=== PATIENT | male | born 1950 | race Caucasian/White ===

== ENCOUNTER 2016-08-10 10:05 | Inpatient (IN) | payer MEDICARE, BC ==
--- NOTE | 2016-08-10 10:11 | ER Document Report ---
ED Medical Screen (RME) - General Stated Complaint: DIARRHEA,WEAKNESS Mode of Arrival: Wheelchair Information source: Patient, Relative - Notes: Patient presents to emergency department with reports of vomiting diarrhea since Friday. He reports he woke up at approximately 2:00 in the morning and fell hitting his left side of his face. Patient has a black eye tender to palpation. reports that on Friday night patient seemed confused. She also reports he has some chest pain when since . She also reports shortness of breath. I have greeted and performed a rapid initial assessment of this patient. A comprehensive ED assessment and evaluation of the patient, analysis of test results and completion of the medical decision making process will be conducted by additional ED providers. TRAVEL OUTSIDE OF THE [place] IN LAST 30 DAYS: No - Related Data Allergies/Adverse Reactions: No Known Allergies Allergy (Verified 08/10/16 10:12) Past Medical History - Past Medical History Cardiac Medical History: Reports: Hx Hypercholesterolemia, Hx Hypertension Physical Exam - Vital signs Vitals: Temp Pulse Resp BP Pulse Ox 97.6 F 85 16 98/63 L 97 08/10/16 10:11 08/10/16 10:11 08/10/16 10:11 08/10/16 10:11 08/10/16 10:11 Course - Vital Signs Vital signs: Temp Pulse Resp BP Pulse Ox 97.6 F 85 16 98/63 L 97 08/10/16 10:11 08/10/16 10:11 08/10/16 10:11 08/10/16 10:11 08/10/16 10:11
[2016-08-10] MEDS ORDERED: NORMAL SALINE 1000 ML 1,000 ML IV ONE ×2 (10:13→12:04)
[2016-08-10 10:51] LABS: ADD ON TESTING BLD IN LAB ACKNOWLEDGE
[2016-08-10 11:08] LABS: HEMATOCRIT 33.8 % (37.9-51.0); HGB HCT DIFFERENCE 2.2; MEAN CORPUSCULAR HEMOGLOBIN 31.3 pg (27.0-33.4); MEAN CORPUSCULAR HGB CONC 35.4 g/dL (32.0-36.0); MEAN CORPUSCULAR VOLUME 88 fl (80-97); RED BLOOD COUNT 3.83 10^6/uL (4.35-5.55); RED CELL DISTRIBUTION WIDTH 13.7 % (11.5-14.0)
[2016-08-10 11:18] LABS: ALANINE AMINOTRANSFERASE 43 U/L (21-72); ALBUMIN 4.6 g/dL (3.5-5.0); ALKALINE PHOSPHATASE 47 U/L (38-126); ANION GAP 19 (5-19); ASPARTATE AMINO TRANSFERASE 71 U/L (17-59); BILIRUBIN,DIRECT 0.3 mg/dL (0.0-0.4); BILIRUBIN,TOTAL 0.6 mg/dL (0.2-1.3); BLOOD UREA NITROGEN 43 mg/dL (7-20); CALCIUM 9.7 mg/dL (8.4-10.2); CARBON DIOXIDE 23 mmol/L (22-30); CHLORIDE 97 mmol/L (98-107); CREATINE KINASE 718 U/L (55-170); CREATININE RESULT 2.89 mg/dL (0.52-1.25); GLUCOSE 155 mg/dL (75-110); LIPASE 1833.7 U/L (23-300); SODIUM 139.2 mmol/L (137-145); TOTAL PROTEIN 7.8 g/dL (6.3-8.2)
[2016-08-10 11:21] LABS: POTASSIUM 2.8 mmol/L (3.6-5.0)
[2016-08-10 11:27] LABS: BASOPHILS % (MANUAL) 0 % (0-2); EOSINOPHILS % (MANUAL) 1 % (0-6); LYMPHOCYTES % (MANUAL) 12 % (13-45); TOTAL CELLS COUNTED 100
[2016-08-10 11:28] LABS: BAND NEUTROPHILS % (MANUAL) 11 % (3-5); RBC MORPHOLOGY COMMENT NORMO-CYTIC/CHROMIC
[2016-08-10 11:30] LABS: CREATINE KINASE MB 6.03 ng/mL (<4.55)
[2016-08-10 11:32] LABS: TROPONIN I 0.127 ng/mL
[2016-08-10 11:37] LABS: ADD ON TESTING BLD IN LAB ACKNOWLEDGE
--- NOTE | 2016-08-10 11:45 | ER Document Report ---
ED General - General Chief Complaint: Dizziness Stated Complaint: DIARRHEA,WEAKNESS Mode of Arrival: Wheelchair Information source: Patient, Relative Notes: Patient reports a 5 day history of nausea, vomiting and diarrhea. Patient states she's vomited numerous times and had diarrhea a numerous number times as well. Patient states that he feels dizzy whenever he stands up. Patient reports having a low-grade fever at home. Patient additionally reports cough for the past 5 days. Patient complains of generalized abdominal pain that he attributes to the vomiting. Patient has had a decrease in appetite. states that 3 days ago patient got up to go to the bathroom during the night and was bumping into barnett and then fell. Patient reports that he is uncertain exactly what he hit when he fell in the hallway but had bruising to the left facial area. states at that time he seemed somewhat confused, although the confusion resolved. Since then patient has been acting normally. Patient denies any chest pain or shortness of breath at this time. Patient denies any blood in his emesis or stool. TRAVEL OUTSIDE OF THE [place] IN LAST 30 DAYS: No - HPI Onset: Other - 5 days Onset/Duration: Persistent Quality of pain: Achy Pain Level: 1 Associated symptoms: Nonproductive cough, Diarrhea, Fever - Low-grade, Nausea, Vomiting, Weakness. denies: Body/muscle aches, Chest pain, Productive cough, Shortness of breath Exacerbated by: Standing, Walking Relieved by: Denies Similar symptoms previously: No Recently seen / treated by doctor: No - Related Data Allergies/Adverse Reactions: No Known Allergies Allergy (Verified 08/10/16 10:12) Home Medications: Current Home Medications Escitalopram Oxalate 20 mg PO DAILY 08/10/16 [History] Fenofibrate Nanocrystallized [Fenofibrate] 48 mg PO DAILY 08/10/16 [History] Gabapentin 600 mg PO TID 08/10/16 [History] Imatinib Mesylate 400 mg PO DAILY 08/10/16 [History] Levothyroxine Sodium [Synthroid 0.1 mg Tablet] 0.1 mg PO DAILY 08/10/16 [History ] Metoprolol Succinate 25 mg PO BID 08/10/16 [History] Rosuvastatin Calcium [Crestor 10 mg Tablet] 10 mg PO DAILY 08/10/16 [History] Past Medical History - General Information source: Patient, Relative - - Social History Smoking Status: Never Smoker Chew tobacco use (# tins/day): No Frequency of alcohol use: None Drug Abuse: None Lives with: Spouse/Significant other Family History: None - Past Medical History Cardiac Medical History: Reports: Hx Hypercholesterolemia, Hx Hypertension Endocrine Medical History: Reports: Hx Hypothyroidism Renal/ Medical History: Denies: Hx Peritoneal Dialysis Malignancy Medical History: 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 denies: Chest pain, Palpitations Respiratory: Cough. denies: Short of breath, Wheezing Gastrointestinal: Abdominal pain, Diarrhea, Nausea, Vomiting, Poor appetite, Poor fluid intake. denies: Abdomen distended, Blood streaked bowels Genitourinary: No symptoms reported. denies: Dysuria, Flank pain Male Genitourinary: No symptoms reported Musculoskeletal: No symptoms reported. denies: Back pain Skin: No symptoms reported Hematologic/Lymphatic: No symptoms reported Neurological/Psychological: Weakness. denies: Confusion Physical Exam - Vital signs Vitals: Temp Pulse Resp BP Pulse Ox 97.6 F 85 16 98/63 L 97 08/10/16 10:11 08/10/16 10:11 08/10/16 10:11 08/10/16 10:11 08/10/16 10:11 - General General appearance: Appears well, Alert In distress: None - HEENT Head: Abrasions - Scabbed abrasions to left periorbital area, Ecchymosis - Left periorbital ecchymosis Eyes: Periorbital ecchymosis Conjunctiva: Normal Extraocular movements intact: Yes Eyelashes: Normal Pupils: PERRL Ears: Normal External canal: Normal Tympanic membrane: Normal. No: Hemotympanum Nasal: Normal Mouth/Lips: Normal Mucous membranes: Normal Pharynx: Normal. No: Erythema, Exudate Neck: Normal, Supple. No: Lymphadenopathy Notes: No cervical midline tenderness, step-off or deformity - Respiratory Respiratory status: No respiratory distress Chest status: Nontender Breath sounds: Nonproductive cough Chest palpation: Normal - Cardiovascular Rhythm: Regular Heart sounds: S1 appreciated, S2 appreciated Murmur: No - Abdominal Inspection: Normal Distension: No distension Bowel sounds: Normal Tenderness: Tender - Generalized abdominal tenderness, abdomen soft. No: Guarding Organomegaly: No organomegaly - Back Back: Normal, Nontender. No: CVA tenderness - Extremities General upper extremity: Normal inspection, Normal ROM General lower extremity: Normal inspection, Normal ROM - Neurological Neuro grossly intact: Yes Cognition: Normal [place] Coma Scale Eye Opening: Spontaneous [place] Coma Scale Verbal: Oriented [place] Coma Scale Motor: Obeys Commands Kami Coma Scale Total: 15 - Psychological Associated symptoms: Normal affect, Normal mood - Skin Skin Temperature: Warm Skin Moisture: Dry Skin Color: Ecchymosis - Left periorbital ecchymosis Course - Re-evaluation Re-evalutation: 08/10/16 11:[address] Melvin regarding patient presentation and reviewed diagnostics including patient's elevated troponin, lipase, renal function, and potassium level. Recommends only given 20 mEq of KCl, ordering a noncontrasted CT of the abdomen, with the plan to call hospitalist for admission. 08/10/16 12:50 Patient's abdomen soft, nontender. Patient denies any chest pain, shortness of breath or dizziness at present. Patient states that he feels that the IV fluids and medicine have helped him and he feels much better. Patient states he feels like he is getting his energy back. 08/10/16 13:[address] Sanford regarding patient presentation and need for admission. Dr. Sanford would prefer to have consultation with [facility] on- call to determine whether or not patient would need to stay at this facility or be transferred to a tertiary center. Consulted with Dr. Heart who is very familiar with this patient. Reviewed patient's EKG report as well as diagnostic tests including his troponin. States that as long as patient is not having active chest pain or does not have any increase in his troponin that patient can be managed by this facility. Dr. Sanford advised of discussion with Dr. Heart and agrees to accept patient for admission. - Vital Signs Vital signs: Temp Pulse Resp BP Pulse Ox 98.2 F 72 16 126/64 H 100 08/10/16 15:39 08/10/16 15:39 08/10/16 15:39 08/10/16 15:39 08/10/16 15:39 - Laboratory Result Diagrams: 08/10/16 10:45 08/10/16 10:45 Laboratory results interpreted by me: 08/10/16 08/10/16 08/10/16 10:45 10:45 10:45 RBC 3.83 L Hgb 12.0 L Hct 33.8 L Band Neutrophils % 11 H Lymphocytes % (Manual) 12 L Monocytes % (Manual) 21 H Potassium 2.8 L* Chloride 97 L BUN 43 H Creatinine 2.89 H Est GFR ( Amer) 27 L Est GFR (Non-Af Amer) 22 L Glucose 155 H AST 71 H Creatine Kinase 718 H CK-MB (CK-2) Lipase 1833.7 H 08/10/16 10:45 RBC Hgb Hct Band Neutrophils % Lymphocytes % (Manual) Monocytes % (Manual) Potassium Chloride BUN Creatinine Est GFR ( Amer) Est GFR (Non-Af Amer) Glucose AST Creatine Kinase CK-MB (CK-2) 6.03 H Lipase 08/10/16 18:28 - Diagnostic Test Radiology reviewed: Reports reviewed Discharge - Discharge Clinical Impression: Nausea vomiting and diarrhea, Elevated troponin Acute renal failure (ARF) Qualifiers: Acute renal failure type: unspecified Qualified Code(s): N17.9 - Acute kidney failure, unspecified Pancreatitis Qualifiers: Chronicity: acute Pancreatitis type: unspecified pancreatitis type Acute pancreatitis complication: unspecified Qualified Code(s): K85.90 - Acute pancreatitis without necrosis or infection, unspecified Admitting Provider: Hospitalist
[2016-08-10] MEDS ORDERED: POTASSI CL 20 MEQ/50 ML RIDER 50 ML IV ONE (11:53)
[2016-08-10 12:02] LABS: MAGNESIUM 1.6 mg/dL (1.6-2.3)
[2016-08-10 12:51] LABS: VENOUS BLOOD BASE EXCESS -1.6 mmol/L; VENOUS BLOOD HCO3 22.5 mmol/L (20-32); VENOUS BLOOD PCO2 36.1 mmHg (35-63); VENOUS BLOOD PH 7.41 (7.30-7.42)
[2016-08-10 12:58] LABS: PROTHROMBIN TIME 12.8 SEC (11.4-15.4)
[2016-08-10] MEDS ORDERED: ACETAMINOPHEN 325 MG TABLET PO PRN (15:16)
[2016-08-10] MEDS ORDERED: NORMAL SALINE 1000 ML 1,000 ML IV PRN (15:16)
[2016-08-10] MEDS ORDERED: ONDANSETRON HCL INJ/PF 4 MG/2 ML SDV IV PRN (15:23)
[2016-08-10] MEDS ORDERED: POTASSIUM CHLORIDE 10 MEQ TABLET.SA PO ONE (15:27)
--- NOTE | 2016-08-10 15:58 | PDOC H&P ---
History of Present Illness Admission Date/PCP: 08/10/16 13:54 JOSE HOLGUIN PA-C Patient complains of: Generalized weakness History of Present Illness: QI KUMAR is a 66 year old male, with history of hypertension, hyperlipidemia, chronic myelogenous leukemia currently in remission presents to the hospital because of generalized weakness that has been progressive for the past few days. The patient started to develop generalized weakness and lightheadedness 4 days ago subsequently followed by watery diarrhea, intermittent abdominal pain, nausea and vomiting. The patient had an episode of a fall causing bruises periorbitally on the left. There was no syncopal episode. Patient symptoms expected to go away by him however it persisted. Earlier this morning there is generalized malaise and fatigue and not feeling well and therefore the patient went to the emergency room for evaluation. He was found to have an elevated creatinine. Lipase level was likewise elevated as well as the troponin is mildly elevated. Patient was given intravenous fluids and he started to feel better. He was then referred for admission. Past Medical History Cardiac Medical History: Reports: Hyperlipidema, Hypertension Endocrine Medical History: Reports: Hypothyroidism Malignancy Medical History: Reports: Leukemia - Chronic myelogenous Past Surgical History Past Surgical History: Reports: Cardiac Catheterization - no stents, Cholecystectomy Social History Information Source: Patient Smoking Status: Never Smoker Frequency of Alcohol Use: None Hx Recreational Drug Use: No Drugs: None Family History Family History: DM, Malignancy, Other - Kidney disease Parental Family History Reviewed: Yes Children Family History Reviewed: Yes Sibling(s) Family History Reviewed.: Yes Medication/Allergy Home Medications: Aspirin 81 mg PO DAILY 05/15/13 Folic Acid 1 mg PO DAILY 05/15/13 Imatinib Mesylate [Gleevec] 400 mg PO DAILY 05/15/13 Potassium Chloride 20 meq PO DAILY 05/15/13 Escitalopram Oxalate 20 mg PO DAILY 08/10/16 Fenofibrate Nanocrystallized [Fenofibrate] 48 mg PO DAILY 08/10/16 Gabapentin 600 mg PO TID 08/10/16 Imatinib Mesylate 400 mg PO DAILY 08/10/16 Levothyroxine Sodium [Synthroid 0.1 mg Tablet] 0.1 mg PO DAILY 08/10/16 Metoprolol Succinate 25 mg PO BID 08/10/16 Rosuvastatin Calcium [Crestor 10 mg Tablet] 10 mg PO DAILY 08/10/16 Allergies/Adverse Reactions: No Known Allergies Allergy (Verified 08/10/16 10:12) Review of Systems Constitutional: PRESENT: chills, weakness - Generalized. ABSENT: fever(s), headache(s), weight gain, weight loss Eyes: ABSENT: visual disturbances Ears: ABSENT: hearing changes Nose, Mouth, and Throat: ABSENT: mouth pain, sore throat Cardiovascular: ABSENT: chest pain, dyspnea on exertion, edema, orthropnea, palpitations Respiratory: ABSENT: cough, hemoptysis, sputum Gastrointestinal: PRESENT: abdominal pain, diarrhea, nausea, vomiting. ABSENT: constipation, dysphagia, hematemesis, hematochezia, melena Genitourinary: ABSENT: difficulty urinating, dysuria, hematuria Musculoskeletal: ABSENT: joint swelling Integumentary: ABSENT: pruritus, rash, wounds Neurological: PRESENT: syncope - Near syncopal episode. ABSENT: abnormal gait, abnormal speech, confusion, convulsions, dizziness, focal weakness Psychiatric: ABSENT: anxiety, depression, homidical ideation, suicidal ideation Endocrine: ABSENT: cold intolerance, heat intolerance, polydipsia, polyuria Hematologic/Lymphatic: ABSENT: easy bleeding, easy bruising Physical Exam Vital Signs: Temp Pulse Resp BP Pulse Ox 97.6 F 85 18 149/78 H 100 08/10/16 10:11 08/10/16 10:11 08/10/16 14:01 08/10/16 14:01 08/10/16 14:01 General appearance: PRESENT: no acute distress, cooperative, well-developed, well-nourished Head exam: PRESENT: normocephalic Eye exam: PRESENT: conjunctiva pink, EOMI, periorbital swelling - Mild on the left with ecchymosis, PERRLA. ABSENT: scleral icterus Ear exam: PRESENT: normal external ear exam Mouth exam: PRESENT: dry mucosa, neck supple, tongue midline Throat exam: ABSENT: post pharyngeal erythema, tonsillar erythema Neck exam: ABSENT: carotid bruit, JVD, lymphadenopathy, thyromegaly Respiratory exam: PRESENT: clear to auscultation robin. ABSENT: rales, rhonchi, wheezes Cardiovascular exam: PRESENT: RRR, +S1, +S2. ABSENT: diastolic murmur, gallop, rubs, systolic murmur Pulses: PRESENT: normal dorsalis pedis pul Vascular exam: PRESENT: normal capillary refill GI/Abdominal exam: PRESENT: normal bowel sounds, soft. ABSENT: distended, guarding, mass, organolmegaly, rebound, tenderness Rectal exam: PRESENT: deferred Extremities exam: PRESENT: full ROM. ABSENT: calf tenderness, clubbing, pedal edema Neurological exam: PRESENT: alert, awake, oriented to person, oriented to place , oriented to time, oriented to situation, CN II-XII grossly intact Psychiatric exam: PRESENT: appropriate affect, normal mood. ABSENT: homicidal ideation, suicidal ideation Skin exam: PRESENT: dry, warm. ABSENT: cyanosis Results Impressions: Chest X-Ray 08/10/16 10:13 IMPRESSION: NO ACUTE RADIOGRAPHIC FINDING IN THE CHEST. Head CT 08/10/16 10:13 IMPRESSION: NORMAL BRAIN CT WITHOUT CONTRAST. Facial Bones CT 08/10/16 10:15 IMPRESSION: Left orbital soft tissue swelling. No acute fracture. Abdomen/Pelvis CT 08/10/16 11:41 IMPRESSION: Fatty liver. Diverticulosis. No acute intra-abdominal process. Assessment & Plan - Diagnosis (1) Acute renal failure (ARF) Qualifiers: Acute renal failure type: unspecified Qualified Code(s): N17.9 - Acute kidney failure, unspecified Is this a current diagnosis for this admission?: Yes (2) Elevated troponin Is this a current diagnosis for this admission?: Yes (3) Nausea vomiting and diarrhea Is this a current diagnosis for this admission?: Yes (4) Hypokalemia Is this a current diagnosis for this admission?: Yes (5) Pancreatitis Qualifiers: Chronicity: acute Pancreatitis type: unspecified pancreatitis type Acute pancreatitis complication: unspecified Qualified Code(s): K85.90 - Acute pancreatitis without necrosis or infection, unspecified Is this a current diagnosis for this admission?: Yes (6) Hyperlipidemia Qualifiers: Hyperlipidemia type: unspecified Qualified Code(s): E78.5 - Hyperlipidemia, unspecified Is this a current diagnosis for this admission?: Yes (7) Hypertension Qualifiers: Hypertension type: essential hypertension Qualified Code(s): I10 - Essential (primary) hypertension Is this a current diagnosis for this admission?: Yes (8) Hypothyroidism Qualifiers: Hypothyroidism type: unspecified Qualified Code(s): E03.9 - Hypothyroidism, unspecified Is this a current diagnosis for this admission?: Yes (9) CML (chronic myelocytic leukemia) Is this a current diagnosis for this admission?: Yes - Time Time Spent: 50 to 70 Minutes - Inpatient Certification Based on my medical assessment, after consideration of the patient's comorbidities, presenting symptoms, or acuity I expect that the services needed warrant INPATIENT care.: Yes I certify that my determination is in accordance with my understanding of Medicare's requirements for reasonable and necessary INPATIENT services [42 CFR 412.3e].: Yes Medical Necessity: Need Close Monitoring Due to Risk of Patient Decompensation, Need For IV Fluids, Need For Continuous Telemetry Monitoring, Risk of Complication if Not Cared For in Hospital, Risk of Diagnosis Which Will Require Inpatient Eval/Care/Monitoring Post Hospital Care: D/C Wheel Borer Documentation - Plan Summary Plan Summary: The patient will be admitted to telemetry. I will hydrate the patient with normal saline and monitor lipase as well as creatinine and electrolytes. We will likewise monitor WBC. We will replace potassium. Obtain renal ultrasound. We will check stool culture. We will consult cardiology and serially obtain cardiac enzymes. Further testing depends on the initial evaluation as outlined above.
[2016-08-10 16:58] LABS: CREATINE KINASE MB 6.21 ng/mL (<4.55)
[2016-08-10 17:03] LABS: TROPONIN I 0.105 ng/mL
--- NOTE | 2016-08-10 18:59 | PDOC CONSULTATION ---
Consultation Consult Date: 08/10/16 Attending physician:: ISI MYERS Consult reason:: Abnormal troponin I elevation, abnormal EKG History of Present Illness Admission Date/PCP: 08/10/16 15:16 JOSE HOLGUIN PA-C Patient complains of: Marked fatigue and tiredness and near-syncopal spell History of Present Illness: QI KUMAR is a 66 year old male, with history of hypertension, hyperlipidemia, chronic myelogenous leukemia currently in remission presents to the hospital because of generalized weakness that has been progressive for the past few days. The patient started to develop generalized weakness and lightheadedness 4 days ago subsequently followed by watery diarrhea, intermittent abdominal pain, nausea and vomiting. The patient had an episode of a fall causing bruises periorbitally on the left. There was no syncopal episode. Patient symptoms expected to go away by him however it persisted. Earlier this morning there is generalized malaise and fatigue and not feeling well and therefore the patient went to the emergency room for evaluation. He was found to have an elevated creatinine. Lipase level was likewise elevated as well as the troponin is mildly elevated. Patient was given intravenous fluids and he started to feel better. Patient noted to have some nonspecific T- wave inversion and also positive troponin I in the non-STEMI range. I was therefore asked to evaluate him. Patient does have history of coronary artery disease with prior stent placement. Past Medical History Cardiac Medical History: Reports: Coronary Artery Disease, Hyperlipidema, Hypertension Endocrine Medical History: Reports: Hypothyroidism Malignancy Medical History: Reports: Leukemia, Other - CML Psychiatric Medical History: Denies: Depression Past Surgical History Past Surgical History: Reports: Cardiac Catheterization - History of stent placement, Cholecystectomy Social History Information Source: Patient Lives with: Spouse/Significant other Smoking Status: Never Smoker Frequency of Alcohol Use: None Hx Recreational Drug Use: No Drugs: None Family History Family History: None Parental Family History Reviewed: Yes Children Family History Reviewed: Yes Sibling(s) Family History Reviewed.: Yes - Negative for premature coronary artery disease or sudden cardiac in the family amongst first degree relatives. Medication/Allergy Home Medications: Aspirin 81 mg PO DAILY 05/15/13 Folic Acid 1 mg PO DAILY 05/15/13 Imatinib Mesylate [Gleevec] 400 mg PO DAILY 05/15/13 Potassium Chloride 20 meq PO DAILY 05/15/13 Escitalopram Oxalate 20 mg PO DAILY 08/10/16 Fenofibrate Nanocrystallized [Fenofibrate] 48 mg PO DAILY 08/10/16 Gabapentin 600 mg PO TID 08/10/16 Imatinib Mesylate 400 mg PO DAILY 08/10/16 Levothyroxine Sodium [Synthroid 0.1 mg Tablet] 0.1 mg PO DAILY 08/10/16 Metoprolol Succinate 25 mg PO BID 08/10/16 Rosuvastatin Calcium [Crestor 10 mg Tablet] 10 mg PO DAILY 08/10/16 Allergies/Adverse Reactions: No Known Allergies Allergy (Verified 08/10/16 10:12) Review of Systems Review of Systems: Please see history of present illness and past medical history as wall. Constitutional: No fever or chills reported. Head : No recent chronic headaches, recent head injury. Eyes: No recent eye pain, diplopia, redness, discharge, acute visual changes. Ears: No recent chronic ear pain, acute hearing loss, ear discharge. Oral cavity: No recent ulcerations, bleeding, oral cavity discomfort. Neck: No recent acute neck pain reported. Hematologic: No recent easy bruising or bleeding or hematologic malignancy reported. Lymphatic: No recent lymphatic malignancy, chronic lymphadenopathy reported yet Cardiovascular system review: See history of present illness. Respiratory system review: No recent chronic cough, hemoptysis, blood clots in the lungs reported. Mild Shortness of breath on exertion Gastrointestinal system review: Intermittent abdominal pain along with watery diarrhea, some nausea but no vomiting.. Genitourinary system review: No recent acute or chronic hematuria, flank pain, UTI etc. reported. Skin system review: Negative for any recent abnormal bruising, no rash, no pruritus reported. Neurologic: No prior history of strokes, mini strokes, seizure disorder. Near syncopal spell and generalized weakness noted recently Psychologic: No history of major psychosis or major depression reported. Musculoskeletal: Minor aches and pains reported. No acute joint swelling reported. Endocrine: No recent polyuria, polydipsia, recent heat or cold intolerance. Physical Exam Vital Signs: Temp Pulse Resp BP Pulse Ox 98.2 F 72 16 126/64 H 100 08/10/16 15:39 08/10/16 15:39 08/10/16 15:39 08/10/16 15:39 08/10/16 15:39 Intake & Output 08/09/16 08/10/16 08/11/16 06:59 06:59 06:59 Intake Total 300 Balance 300 Weight 85.8 kg Exam: GENERAL: well-nourished and in no acute distress. Alert and oriented x3 HEAD: Atraumatic, normocephalic. Periorbital bruise and abrasion along with superficial hematoma noted left side EYES: Pupils equal round and reactive to light, extraocular movements intact, sclera anicteric, conjunctiva are normal. ENT: TMs normal, nares patent, oropharynx clear without exudates. Moist mucous membranes. No oral ulcerations or bleeding gums noted NECK: supple without lymphadenopathy. Trachea is central. No cervical or axillary lymphadenopathy noted. Carotids are 2+, JVD WNL LUNGS: Respiration seems nonlabored, no significant accessory muscle action noted. Breath sounds clear to auscultation bilaterally and equal noted. No wheezes rales or rhonchi noted. No significant dullness noted on percussion. CHEST: Palpation of the chest wall shows no significant chest wall tenderness. No other significant abnormalities noted. HEART: [place] [employer]AME, No PSH, 1/6 NILA aortic area, 1/6 reddy systolic murmur mitral area, no rubs, no gallops. ABDOMEN: Soft, no significant tenderness appreciated, normoactive bowel sounds. No guarding, no rebound. No rigidity noted . No masses appreciated. EXTREMITIES: Pedal pulses are 1-2+, no calf tenderness noted. No clubbing or cyanosis.trace to 1+ pedal edema noted NEUROLOGICAL: Focused neurological exam showed no significant neurologic deficit. Normal speech, no focal weakness appreciated. PSYCH: Normal mood, normal affect. Judgment and insight within normal limits. SKIN: No significant ecchymosis, rash, ulcerations or signs of pruritus noted. MUSCULOSKELETAL EXAM: No significant joint swelling noted. Results Laboratory Results: 08/10/16 08/10/16 16:08 16:08 Creatine Kinase 630 H CK-MB (CK-2) 6.21 H Troponin I 0.105 EKG Comments: Sinus rhythm with minor nonspecific ST-T wave changes, rare PVC Impressions: Renal Ultrasound 08/10/16 00:00 IMPRESSION: Small bilateral renal cyst otherwise negative renal ultrasound. Small stones demonstrated on the CT done earlier are not demonstrated. Chest X-Ray 08/10/16 10:13 IMPRESSION: NO ACUTE RADIOGRAPHIC FINDING IN THE CHEST. Head CT 08/10/16 10:13 IMPRESSION: NORMAL BRAIN CT WITHOUT CONTRAST. Facial Bones CT 08/10/16 10:15 IMPRESSION: Left orbital soft tissue swelling. No acute fracture. Abdomen/Pelvis CT 08/10/16 11:41 IMPRESSION: Fatty liver. Diverticulosis. No acute intra-abdominal process. Assessment & Plan - Diagnosis (1) Abnormal electrocardiogram Is this a current diagnosis for this admission?: Yes (2) Elevated troponin Is this a current diagnosis for this admission?: Yes (3) Acute renal failure (ARF) Qualifiers: Acute renal failure type: unspecified Qualified Code(s): N17.9 - Acute kidney failure, unspecified Is this a current diagnosis for this admission?: Yes (4) CML (chronic myelocytic leukemia) Is this a current diagnosis for this admission?: Yes (5) Hyperlipidemia Qualifiers: Hyperlipidemia type: unspecified Qualified Code(s): E78.5 - Hyperlipidemia, unspecified Is this a current diagnosis for this admission?: Yes (6) Hypertension Qualifiers: Hypertension type: essential hypertension Qualified Code(s): I10 - Essential (primary) hypertension Is this a current diagnosis for this admission?: Yes (7) Pancreatitis Qualifiers: Chronicity: acute Pancreatitis type: unspecified pancreatitis type Acute pancreatitis complication: unspecified Qualified Code(s): K85.90 - Acute pancreatitis without necrosis or infection, unspecified Is this a current diagnosis for this admission?: Yes (8) Electrolyte imbalance Is this a current diagnosis for this admission?: Yes (9) Near syncope Is this a current diagnosis for this admission?: Yes (10) Generalized weakness Is this a current diagnosis for this admission?: Yes (11) Coronary artery disease Qualifiers: Coronary Disease-Associated Artery/Lesion type: [place] artery [place] vs. transplanted heart: [place] heart Associated angina: angina presence unspecified Qualified Code(s): I25.10 - Atherosclerotic heart disease of [place] coronary artery without angina pectoris Is this a current diagnosis for this admission?: Yes - Notes Notes: Abnormal electrocardiogram: This is most likely from electrolyte imbalance. Recommend correcting potassium and magnesium level and repeat EKGs. Troponin I elevation: Feel that this is related to metabolic reasons, near syncope, severe hypokalemia, pancreatitis etc. rather than acute coronary syndrome. Patient denied any chest pain. However recommend cycling cardiac enzymes. Also cycle EKGs. Acute renal failure: Most likely related to hypovolemia. Dyslipidemia: Continue statin therapy. Hypertension: Currently hold antihypertensive. Blood pressure improves. Pancreatitis: Recommend conservative management at this point. Electrolyte imbalance. Recommend correction. Near syncope: Possibly related to postural hypotension versus vasovagal. Patient may benefit from event monitoring as an outpatient. Generalized weakness: Probably related to diarrhea and systemic illness. Coronary artery disease: Patient does have a history of coronary artery disease with questionable history of stent placement. I believe in 2007. He has been stable since then without any recurrence of chest pain etc. At that time patient was also diagnosed to have leukemia. - Time Time Spent: 30 to 50 Minutes - CODE STATUS was discussed, patient remains full code. Surrogate decision-maker ration is . Multiple medical problems were addressed.More than 50% of the time spent coordinating care, discussing management plans with involved caregivers. Management plans discussed with involved personnels. Medical decision making was of moderate complexity.
[2016-08-10 19:48] LABS: APPEARANCE,URINE SLIGHTLY-CLOUDY; BILIRUBIN,URINE NEGATIVE (NEGATIVE); GLUCOSE, URINE NEGATIVE (NEGATIVE); KETONES,URINE NEGATIVE (NEGATIVE); LEUKOCYTE ESTERASE,URINE NEGATIVE (NEGATIVE); NITRITE,URINE NEGATIVE (NEGATIVE); PROTEIN,URINE 30 mg/dL (NEGATIVE); URINE SPECIFIC GRAVITY 1.013; UROBILINOGEN,URINE NEGATIVE mg/dL (<2.0)
[2016-08-10 20:54] LABS: CREATINE KINASE MB 6.91 ng/mL (<4.55); TROPONIN I 0.106 ng/mL
[2016-08-10] MEDS: METOPROLOL SUCCINATE 25 MG TAB.SR.24H PO SCH (21:41)
[2016-08-10] MEDS: ATORVASTATIN CALCIUM 20 MG TABLET PO SCH (21:41)
[2016-08-10] MEDS: GABAPENTIN 300 MG CAPSULE PO SCH (21:41)
--- NOTE | 2016-08-10 22:20 | EKG REPORT ---
SEVERITY:- ABNORMAL ECG - SINUS RHYTHM ATRIAL PREMATURE COMPLEX DIFFUSE NONSPECIFIC ST-T CHANGES : Confirmed by: Kolton Correia MD 10-Aug-2016 17:32:49
[2016-08-11 00:32] LABS: CREATINE KINASE MB 6.77 ng/mL (<4.55); TROPONIN I 0.091 ng/mL
[2016-08-11] MEDS: GABAPENTIN 300 MG CAPSULE PO SCH ×3 (06:28→22:16)
[2016-08-11] MEDS: LANSOPRAZOLE 30 MG TAB.RAP.DR PO SCH (06:28)
[2016-08-11 07:29] LABS: HEMATOCRIT 33.5 % (37.9-51.0); HEMOGLOBIN 11.4 g/dL (13.5-17.0); HGB HCT DIFFERENCE 0.7; MEAN CORPUSCULAR HEMOGLOBIN 30.9 pg (27.0-33.4); MEAN CORPUSCULAR HGB CONC 34.2 g/dL (32.0-36.0); MEAN CORPUSCULAR VOLUME 90 fl (80-97); RED CELL DISTRIBUTION WIDTH 14.2 % (11.5-14.0); WHITE BLOOD COUNT 3.7 10^3/uL (4.0-10.5)
[2016-08-11 07:48] LABS: ALANINE AMINOTRANSFERASE 39 U/L (21-72); ALKALINE PHOSPHATASE 43 U/L (38-126); AMYLASE 160 U/L (30-110); ANION GAP 16 (5-19); ASPARTATE AMINO TRANSFERASE 58 U/L (17-59); BILIRUBIN,DIRECT 0.4 mg/dL (0.0-0.4); BILIRUBIN,TOTAL 0.6 mg/dL (0.2-1.3); BLOOD UREA NITROGEN 33 mg/dL (7-20); CALCIUM 8.7 mg/dL (8.4-10.2); CARBON DIOXIDE 17 mmol/L (22-30); CHLORIDE 111 mmol/L (98-107); CREATININE RESULT 1.61 mg/dL (0.52-1.25); GLUCOSE 123 mg/dL (75-110); POTASSIUM 3.3 mmol/L (3.6-5.0); SODIUM 143.7 mmol/L (137-145)
--- NOTE | 2016-08-11 09:10 | PDOC PROGRESS REPORT ---
Subjective Progress Note for:: 08/11/16 Subjective:: Patient improving clinically but still with abdominal discomfort. Tolerating oral intake. No nausea or vomiting. No chills or fever. No chest pain at all. No shortness of breath, paroxysmal nocturnal dyspnea, orthopnea. Physical Exam Vital Signs: Temp Pulse Resp BP Pulse Ox 98.0 F 68 18 135/67 H 100 08/11/16 04:34 08/11/16 04:34 08/11/16 04:34 08/11/16 04:34 08/11/16 04:34 Intake & Output 08/10/16 08/11/16 08/12/16 06:59 06:59 06:59 Intake Total 2300 Output Total 0 Balance 2300 Weight 87.8 kg General appearance: PRESENT: no acute distress, cooperative Head exam: PRESENT: normocephalic Eye exam: PRESENT: EOMI Mouth exam: PRESENT: moist, neck supple Neck exam: ABSENT: JVD Respiratory exam: PRESENT: clear to auscultation robin. ABSENT: rhonchi, wheezes Cardiovascular exam: PRESENT: RRR. ABSENT: gallop GI/Abdominal exam: PRESENT: normal bowel sounds, soft. ABSENT: distended Extremities exam: ABSENT: pedal edema Skin exam: PRESENT: dry, warm, other - Periorbital ecchymosis on the left stable. ABSENT: cyanosis Results Laboratory Results: 08/11/16 06:48 08/11/16 06:48 08/10/16 08/11/16 08/11/16 19:15 06:48 06:48 WBC 3.7 L RBC 3.70 L Hgb 11.4 L Hct 33.5 L MCV 90 MCH 30.9 MCHC 34.2 RDW 14.2 H Plt Count 215 Sodium 143.7 Potassium 3.3 L Chloride 111 H Carbon Dioxide 17 L Anion Gap 16 BUN 33 H Creatinine 1.61 H Est GFR ( Amer) 53 L Est GFR (Non-Af Amer) 43 L Glucose 123 H Calcium 8.7 Total Bilirubin 0.6 AST 58 ALT 39 Alkaline Phosphatase 43 Total Protein 7.0 Albumin 4.0 Amylase 160 H Lipase 3386.0 H Urine Color YELLOW Urine Appearance SLIGHTLY-CLOUDY Urine pH 5.0 Ur Specific [place] 1.013 Urine Protein 30 H Urine Glucose (UA) NEGATIVE Urine Ketones NEGATIVE Urine Blood SMALL H Urine Nitrite NEGATIVE Ur Leukocyte Esterase NEGATIVE Urine WBC (Auto) 7 Urine RBC (Auto) 1 08/10/16 08/10/16 08/10/16 16:08 16:08 20:14 Creatine Kinase 630 H 599 H CK-MB (CK-2) 6.21 H Troponin I 0.105 08/10/16 08/10/16 08/10/16 20:14 23:57 23:57 Creatine Kinase 575 H CK-MB (CK-2) 6.91 H 6.77 H Troponin I 0.106 0.091 Impressions: Renal Ultrasound 08/10/16 00:00 IMPRESSION: Small bilateral renal cyst otherwise negative renal ultrasound. Small stones demonstrated on the CT done earlier are not demonstrated. Chest X-Ray 08/10/16 10:13 IMPRESSION: NO ACUTE RADIOGRAPHIC FINDING IN THE CHEST. Head CT 08/10/16 10:13 IMPRESSION: NORMAL BRAIN CT WITHOUT CONTRAST. Facial Bones CT 08/10/16 10:15 IMPRESSION: Left orbital soft tissue swelling. No acute fracture. Abdomen/Pelvis CT 08/10/16 11:41 IMPRESSION: Fatty liver. Diverticulosis. No acute intra-abdominal process. Assessment & Plan - Diagnosis (1) Acute renal failure (ARF) Qualifiers: Acute renal failure type: unspecified Qualified Code(s): N17.9 - Acute kidney failure, unspecified Is this a current diagnosis for this admission?: Yes (2) Elevated troponin Is this a current diagnosis for this admission?: Yes (3) Nausea vomiting and diarrhea Is this a current diagnosis for this admission?: Yes (4) Hypokalemia Is this a current diagnosis for this admission?: Yes (5) Pancreatitis Qualifiers: Chronicity: acute Pancreatitis type: unspecified pancreatitis type Acute pancreatitis complication: unspecified Qualified Code(s): K85.90 - Acute pancreatitis without necrosis or infection, unspecified Is this a current diagnosis for this admission?: Yes (6) Hyperlipidemia Qualifiers: Hyperlipidemia type: unspecified Qualified Code(s): E78.5 - Hyperlipidemia, unspecified Is this a current diagnosis for this admission?: Yes (7) Hypertension Qualifiers: Hypertension type: essential hypertension Qualified Code(s): I10 - Essential (primary) hypertension Is this a current diagnosis for this admission?: Yes (8) Hypothyroidism Qualifiers: Hypothyroidism type: unspecified Qualified Code(s): E03.9 - Hypothyroidism, unspecified Is this a current diagnosis for this admission?: Yes (9) CML (chronic myelocytic leukemia) Is this a current diagnosis for this admission?: Yes - Time Time Spent with patient: 25-34 minutes - Plan Summary Plan Summary: Keep the patient nothing by mouth, recheck amylase and lipase in the morning, monitor electrolytes, continue IV hydration and monitoring of creatinine. Replace potassium and magnesium. Obtain MRCP for the pancreatitis.
[2016-08-11] MEDS: MAGNESIUM OXIDE 400 MG TABLET PO SCH ×2 (09:44→17:57)
[2016-08-11] MEDS: ESCITALOPRAM OXALATE 10 MG TABLET PO SCH (09:45)
[2016-08-11] MEDS: LEVOTHYROXINE SODIUM 0.1 MG TABLET PO SCH (09:45)
[2016-08-11] MEDS: ASPIRIN 81 MG TABLET, CHEWABLE PO SCH (09:45)
[2016-08-11] MEDS: METOPROLOL SUCCINATE 25 MG TAB.SR.24H PO SCH ×2 (09:45→22:16)
[2016-08-11] MEDS ORDERED: IMATINIB MESYLATE 400 MG PO SCH (10:00)
[2016-08-11] MEDS ORDERED: (PENDING PHARMACY ID) (Escitalopram Oxalate [Escitalopram Oxalate] 20 MG) PO SCH (10:00)
[2016-08-11] MEDS: POTASSI CL 20 MEQ/50 ML RIDER 50 ML IV SCH ×3 (11:34→17:01)
[2016-08-11] MEDS: NORMAL SALINE 1000 ML 1,000 ML IV PRN ×2 (15:31→22:16)
--- NOTE | 2016-08-11 16:58 | PDOC PROGRESS REPORT ---
Subjective Progress Note for:: 08/11/16 Subjective:: Patient seems to be doing better with gradual improvement. Pt is denying any chest arm or neck discomfort. Patient denying any PND, orthopnea. Patient denied any sustained palpitations, dizziness, syncope, near syncope. Patient denying any fever chills. Patient denying any other significant discomfort. Patient is maintaining sinus rhythm. Patient's renal functions have improved. Amylase has slightly worsened. Clinically he feels better. Review of systems: Rest review of systems negative. Medications: Medications have been reviewed. Physical Exam Vital Signs: Temp Pulse Resp BP Pulse Ox 98.2 F 72 18 137/71 H 99 08/11/16 11:57 08/11/16 11:57 08/11/16 11:57 08/11/16 11:57 08/11/16 11:57 Intake & Output 08/10/16 08/11/16 08/12/16 06:59 06:59 06:59 Intake Total 2300 Output Total 0 Balance 2300 Weight 87.8 kg Exam: GENERAL: well-nourished and in no acute distress. Alert and oriented x3 HEAD: Atraumatic, normocephalic. EYES: Pupils equal round and reactive to light, extraocular movements intact, sclera anicteric, conjunctiva are normal. ENT: TMs normal, nares patent, oropharynx clear without exudates. Moist mucous membranes. No oral ulcerations or bleeding gums noted NECK: supple without lymphadenopathy. Trachea is central. No cervical or axillary lymphadenopathy noted. Carotids are 2+, JVD WNL LUNGS: Respiration seems nonlabored, no significant accessory muscle action noted. Breath sounds clear to auscultation bilaterally and equal noted. No wheezes rales or rhonchi noted. No significant dullness noted on percussion. CHEST: Palpation of the chest wall shows no significant chest wall tenderness. No other significant abnormalities noted. HEART: [place] [employer] TE[employer], No PSH, 1/6 NILA aortic area, 1/6 reddy systolic murmur mitral area, no rubs, no gallops. ABDOMEN: Soft, minimal epigastric tenderness appreciated, normoactive bowel sounds. No guarding, no rebound. No rigidity noted . No masses appreciated. EXTREMITIES: Pedal pulses are 1-2+, no calf tenderness noted. No clubbing or cyanosis.trace to 1+ pedal edema noted NEUROLOGICAL: Focused neurological exam showed no significant neurologic deficit. Normal speech, no focal weakness appreciated. PSYCH: Normal mood, normal affect. Judgment and insight within normal limits. SKIN: No significant ecchymosis, rash, ulcerations or signs of pruritus noted. MUSCULOSKELETAL EXAM: No significant joint swelling noted. Results Laboratory Results: 08/11/16 06:48 08/11/16 06:48 08/10/16 08/11/16 08/11/16 19:15 06:48 06:48 WBC 3.7 L RBC 3.70 L Hgb 11.4 L Hct 33.5 L MCV 90 MCH 30.9 MCHC 34.2 RDW 14.2 H Plt Count 215 Sodium 143.7 Potassium 3.3 L Chloride 111 H Carbon Dioxide 17 L Anion Gap 16 BUN 33 H Creatinine 1.61 H Est GFR ( Amer) 53 L Est GFR (Non-Af Amer) 43 L Glucose 123 H Calcium 8.7 Total Bilirubin 0.6 AST 58 ALT 39 Alkaline Phosphatase 43 Total Protein 7.0 Albumin 4.0 Amylase 160 H Lipase 3386.0 H Urine Color YELLOW Urine Appearance SLIGHTLY-CLOUDY Urine pH 5.0 Ur Specific [place] 1.013 Urine Protein 30 H Urine Glucose (UA) NEGATIVE Urine Ketones NEGATIVE Urine Blood SMALL H Urine Nitrite NEGATIVE Ur Leukocyte Esterase NEGATIVE Urine WBC (Auto) 7 Urine RBC (Auto) 1 08/10/16 08/10/16 08/10/16 16:08 16:08 20:14 Creatine Kinase 630 H 599 H CK-MB (CK-2) 6.21 H Troponin I 0.105 08/10/16 08/10/16 08/10/16 20:14 23:57 23:57 Creatine Kinase 575 H CK-MB (CK-2) 6.91 H 6.77 H Troponin I 0.106 0.091 Impressions: Renal Ultrasound 08/10/16 00:00 IMPRESSION: Small bilateral renal cyst otherwise negative renal ultrasound. Small stones demonstrated on the CT done earlier are not demonstrated. Chest X-Ray 08/10/16 10:13 IMPRESSION: NO ACUTE RADIOGRAPHIC FINDING IN THE CHEST. Head CT 08/10/16 10:13 IMPRESSION: NORMAL BRAIN CT WITHOUT CONTRAST. Facial Bones CT 08/10/16 10:15 IMPRESSION: Left orbital soft tissue swelling. No acute fracture. Abdomen/Pelvis CT 08/10/16 11:41 IMPRESSION: Fatty liver. Diverticulosis. No acute intra-abdominal process. Abdomen MRI 08/11/16 00:00 IMPRESSION: Status post cholecystectomy. Common duct normal caliber without suspected stones. Assessment & Plan - Diagnosis (1) Abnormal electrocardiogram Is this a current diagnosis for this admission?: Yes (2) Elevated troponin Is this a current diagnosis for this admission?: Yes (3) Acute renal failure (ARF) Qualifiers: Acute renal failure type: unspecified Qualified Code(s): N17.9 - Acute kidney failure, unspecified Is this a current diagnosis for this admission?: Yes (4) CML (chronic myelocytic leukemia) Is this a current diagnosis for this admission?: Yes (5) Hyperlipidemia Qualifiers: Hyperlipidemia type: unspecified Qualified Code(s): E78.5 - Hyperlipidemia, unspecified Is this a current diagnosis for this admission?: Yes (6) Hypertension Qualifiers: Hypertension type: essential hypertension Qualified Code(s): I10 - Essential (primary) hypertension Is this a current diagnosis for this admission?: Yes (7) Pancreatitis Qualifiers: Chronicity: acute Pancreatitis type: unspecified pancreatitis type Acute pancreatitis complication: unspecified Qualified Code(s): K85.90 - Acute pancreatitis without necrosis or infection, unspecified Is this a current diagnosis for this admission?: Yes (8) Electrolyte imbalance Is this a current diagnosis for this admission?: Yes (9) Near syncope Is this a current diagnosis for this admission?: Yes (10) Generalized weakness Is this a current diagnosis for this admission?: Yes (11) Coronary artery disease Qualifiers: Coronary Disease-Associated Artery/Lesion type: [place] artery [place] vs. transplanted heart: [place] heart Associated angina: angina presence unspecified Qualified Code(s): I25.10 - Atherosclerotic heart disease of [place] coronary artery without angina pectoris Is this a current diagnosis for this admission?: Yes (12) Diarrhea Qualifiers: Diarrhea type: unspecified type Qualified Code(s): R19.7 - Diarrhea , unspecified Is this a current diagnosis for this admission?: YesPlan: Patient continues to have watery diarrhea. Recommend replacing electrolytes. Check for possible C. difficile infection or other enteritis. - Notes Notes: Abnormal electrocardiogram: This is most likely from electrolyte imbalance. Recommend correcting potassium and magnesium level and repeat EKGs. Will repeat EKG in a.m. Troponin I elevation: Feel that this is related to metabolic reasons, near syncope, severe hypokalemia, pancreatitis etc. rather than acute coronary syndrome. Patient denied any chest pain. However recommend cycling cardiac enzymes. Also cycle EKGs. Patient use to follow-up with me in [place]. He can follow-up with me in [place]. Acute renal failure: Most likely related to hypovolemia. This is improving. Continue IV fluids Dyslipidemia: Continue statin therapy. Hypertension: Currently hold antihypertensive. Blood pressure improves. Pancreatitis: Recommend conservative management at this point. Electrolyte imbalance. Recommend correction. Near syncope: Possibly related to postural hypotension versus vasovagal. Patient may benefit from event monitoring as an outpatient. Generalized weakness: Probably related to diarrhea and systemic illness. Elevated lipase level: Most likely pancreatitis. Patient does give family history apparent that the cancer therefore he is worried about it. Agree with MRI of the abdomen. History of coronary artery disease: Patient has a prior history of CAD. He has been very stable from CAD point of view. Patient use to follow with me in [facility]. He would like to follow-up with me for this condition. - Time Time with patient: Greater than 35 minutes - CODE STATUS was discussed, patient remains full code. Surrogate decision-maker elevation and chest . Multiple medical problems were addressed.More than 50% of the time spent coordinating care, discussing management plans with involved caregivers. Management plans discussed with involved personnels. Medical decision making was of moderate complexity. Medications reviewed and adjusted accordingly: Yes
[2016-08-11] MEDS ORDERED: Imatinib Mesylate [Gleevec] 400 MG PO SCH (17:00)
[2016-08-11] MEDS: ATORVASTATIN CALCIUM 20 MG TABLET PO SCH (22:16)
[2016-08-12] MEDS: LANSOPRAZOLE 30 MG TAB.RAP.DR PO SCH (05:08)
[2016-08-12] MEDS: GABAPENTIN 300 MG CAPSULE PO SCH ×2 (05:08→13:50)
[2016-08-12 06:52] LABS: AMYLASE 164 U/L (30-110); ANION GAP 12 (5-19); BLOOD UREA NITROGEN 21 mg/dL (7-20); CALCIUM 8.4 mg/dL (8.4-10.2); CARBON DIOXIDE 18 mmol/L (22-30); CHLORIDE 114 mmol/L (98-107); CREATININE RESULT 1.02 mg/dL (0.52-1.25); GLUCOSE 109 mg/dL (75-110); POTASSIUM 3.6 mmol/L (3.6-5.0); SODIUM 144.3 mmol/L (137-145)
[2016-08-12 07:03] LABS: LIPASE 3392.6 U/L (23-300)
[2016-08-12] MEDS: ASPIRIN 81 MG TABLET, CHEWABLE PO SCH (09:31)
[2016-08-12] MEDS: LEVOTHYROXINE SODIUM 0.1 MG TABLET PO SCH (09:31)
[2016-08-12] MEDS: METOPROLOL SUCCINATE 25 MG TAB.SR.24H PO SCH (09:31)
[2016-08-12] MEDS: ESCITALOPRAM OXALATE 10 MG TABLET PO SCH (09:32)
--- NOTE | 2016-08-12 12:24 | PDOC DISCHARGE SUMMARY ---
General - Admit/Disc Date/PCP Admission Date/Primary Care Provider: 08/10/16 15:16 JOSE HOLGUIN PA-C Discharge Date: 08/12/16 - Discharge Diagnosis (1) Acute renal failure (ARF) Is this a current diagnosis for this admission?: Yes (2) Elevated troponin Is this a current diagnosis for this admission?: Yes (3) Nausea vomiting and diarrhea Is this a current diagnosis for this admission?: Yes (4) Hypokalemia Is this a current diagnosis for this admission?: Yes (5) Pancreatitis Is this a current diagnosis for this admission?: Yes (6) Hyperlipidemia Is this a current diagnosis for this admission?: Yes (7) Hypertension Is this a current diagnosis for this admission?: Yes (8) Hypothyroidism Is this a current diagnosis for this admission?: Yes (9) CML (chronic myelocytic leukemia) Is this a current diagnosis for this admission?: Yes - Additional Information Discharge Diet: As Tolerated Discharge Activity: Activity As Tolerated, Balance Activity w/Rest Home Medications: Aspirin 81 mg PO DAILY 05/15/13 Folic Acid 1 mg PO DAILY 05/15/13 Imatinib Mesylate [Gleevec] 400 mg PO DAILY 05/15/13 Potassium Chloride 20 meq PO DAILY 05/15/13 Escitalopram Oxalate 20 mg PO DAILY 08/10/16 Gabapentin 600 mg PO TID 08/10/16 Imatinib Mesylate 400 mg PO DAILY 08/10/16 Levothyroxine Sodium [Synthroid 0.1 mg Tablet] 0.1 mg PO DAILY 08/10/16 Metoprolol Succinate 25 mg PO BID 08/10/16 Additional Information: Repeat lipase level as outpatient with primary care physician in one week. Hold Gleevec until discussed with oncologist. Discontinue Lipitor. Return to the emergency room if abdominal pain nausea vomiting recurs. History of Present Illness Patient complains of: Generalized weakness History of Present Illness: QI KUMAR is a 66 year old male, with history of hypertension, hyperlipidemia, chronic myelogenous leukemia currently in remission presents to the hospital because of generalized weakness that has been progressive for the past few days. The patient started to develop generalized weakness and lightheadedness 4 days ago subsequently followed by watery diarrhea, intermittent abdominal pain, nausea and vomiting. The patient had an episode of a fall causing bruises periorbitally on the left. There was no syncopal episode. Patient symptoms expected to go away by him however it persisted. Earlier this morning there is generalized malaise and fatigue and not feeling well and therefore the patient went to the emergency room for evaluation. He was found to have an elevated creatinine. Lipase level was likewise elevated as well as the troponin is mildly elevated. Patient was given intravenous fluids and he started to feel better. He was then referred for admission. Hospital Course Hospital Course: The patient was admitted to telemetry. The patient was found to have acute renal failure and elevated lipase level. Troponin likewise was abnormal. Patient was referred for admission. Cardiology was consulted and felt elevated troponin is not cardiac related likely from metabolic cause. Patient had a CT of the abdomen and pelvis and did not reveal findings suggestive of pancreatitis. However a follow-up lipase level shows elevation. Despite the finding, he improved after hydration with residual abdominal discomfort the following day. Patient requested to be discharged but was able to be convinced to stay for another day and have an MRCP done. The patient agreed and eventually had an MRCP showing no signs of obstruction, nor any inflammatory changes associated with the pancreas. Patient evaluated without any abdominal tenderness at all. Patient continues to improve the following day, with his diarrhea improving as well. His medications were therefore reviewed. He was advised to stop his Lipitor, and likewise hold the Gleevec and talk to his oncologist regarding the possibility of it contributing to her elevated lipase. Patient wanting to go home and just had follow-up with his physician and oncologist. at bedside who is agreeable with the plan. Patient's diet was advanced. Tolerated it well w/o symptoms. They were advised to return to the emergency room if symptoms recurs. Physical Exam Vital Signs: Temp Pulse Resp BP Pulse Ox 97.4 F 70 18 135/67 H 99 08/12/16 11:26 08/12/16 11:26 08/12/16 11:26 08/12/16 11:26 08/12/16 11:26 Intake & Output 08/11/16 08/12/16 08/13/16 06:59 06:59 06:59 Intake Total 2300 4170 Output Total 0 4 Balance 2300 4166 Weight 87.8 kg 89.8 kg General appearance: PRESENT: no acute distress, cooperative Head exam: PRESENT: normocephalic Eye exam: PRESENT: EOMI Mouth exam: PRESENT: moist, neck supple Neck exam: ABSENT: JVD Respiratory exam: PRESENT: clear to auscultation robin. ABSENT: rhonchi, wheezes Cardiovascular exam: PRESENT: RRR. ABSENT: gallop GI/Abdominal exam: PRESENT: normal bowel sounds, soft. ABSENT: distended, tenderness Extremities exam: ABSENT: pedal edema Neurological exam: PRESENT: alert, awake, oriented to situation Skin exam: PRESENT: dry, warm. ABSENT: cyanosis Results Laboratory Results: 08/11/16 06:48 08/12/16 06:06 08/11/16 08/12/16 06:48 06:06 Sodium 144.3 Potassium 3.6 Chloride 114 H Carbon Dioxide 18 L Anion Gap 12 BUN 21 H Creatinine 1.02 Est GFR ( Amer) > 60 Est GFR (Non-Af Amer) > 60 Glucose 109 Calcium 8.4 Magnesium 1.6 Amylase 164 H Lipase 3392.6 H 08/10/16 19:15 Clean Catch Midstream Urine Culture - Final NO GROWTH 2 DAYS 08/10/16 08/10/16 08/10/16 16:08 16:08 20:14 Creatine Kinase 630 H 599 H CK-MB (CK-2) 6.21 H Troponin I 0.105 08/10/16 08/10/16 08/10/16 20:14 23:57 23:57 Creatine Kinase 575 H CK-MB (CK-2) 6.91 H 6.77 H Troponin I 0.106 0.091 Impressions: Renal Ultrasound 08/10/16 00:00 IMPRESSION: Small bilateral renal cyst otherwise negative renal ultrasound. Small stones demonstrated on the CT done earlier are not demonstrated. Chest X-Ray 08/10/16 10:13 IMPRESSION: NO ACUTE RADIOGRAPHIC FINDING IN THE CHEST. Head CT 08/10/16 10:13 IMPRESSION: NORMAL BRAIN CT WITHOUT CONTRAST. Facial Bones CT 08/10/16 10:15 IMPRESSION: Left orbital soft tissue swelling. No acute fracture. Abdomen/Pelvis CT 08/10/16 11:41 IMPRESSION: Fatty liver. Diverticulosis. No acute intra-abdominal process. Abdomen MRI 08/11/16 00:00 IMPRESSION: Status post cholecystectomy. Common duct normal caliber without suspected stones. Qualifiers PATEINT BEING DISCHARGED WITH ANY OF THE FOLLOWING DIAGNOSIS?: No Plan Discharge Plan: Follow-up with primary care physician in one week. Gastroenterology appointment with Dr. Sotelo in 1-2 weeks for the elevated lipase. Oncology appointment in [place] in 1-[address] Heart in 1-2 weeks. Time Spent: Less than 30 Minutes
[2016-08-12 12:33] LABS: PATH REVIEW PATHOLOGIST REVIEWED
[2016-08-12 14:41] VITALS: BP 122/69
--- NOTE | 2016-08-12 16:05 | EKG REPORT ---
SEVERITY:- BORDERLINE ECG - SINUS RHYTHM BORDERLINE T ABNORMALITIES, INFERIOR LEADS : Confirmed by: Belinda Heart 12-Aug-2016 16:04:32
== END 2016-08-12 15:10 | disposition home or self-care (01) | DRG 682 ==
LOC: ER 10:05 → UNDOADMIN 13:54 → EH 13:54 → 4S 15:32
DX: N17.9 Acute kidney failure, unspecified (principal); K85.90 Acute pancreatitis without necrosis or infection, unspecified; C92.10 Chronic myeloid leukemia, BCR/ABL-positive, not having achieved remission; E86.1 Hypovolemia; E87.6 Hypokalemia; R11.2 Nausea with vomiting, unspecified; R19.7 Diarrhea, unspecified; S05.12XA Contusion of eyeball and orbital tissues, left eye, initial encounter; W19.XXXA Unspecified fall, initial encounter; Y93.9 Activity, unspecified; Y92.9 Unspecified place or not applicable; Y99.9 Unspecified external cause status; E78.5 Hyperlipidemia, unspecified; I10 Essential (primary) hypertension; E03.9 Hypothyroidism, unspecified; I25.10 Atherosclerotic heart disease of native coronary artery without angina pectoris; Z79.82 Long term (current) use of aspirin; Z79.899 Other long term (current) drug therapy; Z90.49 Acquired absence of other specified parts of digestive tract; Z95.5 Presence of coronary angioplasty implant and graft
CPT/HCPCS: 36415; 70450; 70486; 71010; 74176; 74181; 76770; 80048; 80053; 80076; 81001; 82150; 82550; 82553; 82803; 83036; 83605; 83690; 83735; 84484; 85025; 85027; 85610; 87040; 87045; 87077; 87086; 87186; 87205; 87493; 89055; 93005; 93010; 96361; 96365; 96366; 99285; J3480; J7030